=== PATIENT | female | born 1985 | race Caucasian/White ===

== ENCOUNTER 2022-04-03 08:27 | Day surgery (SDC) | payer OTHER ==
[2022-03-30 11:41] LABS: Hemoglobin 13.4 g/dL (12.0-15.5); Mean Corpuscular HGB CONC 34.5 g/dL (32.0-36.0); Mean Platelet Volume 8.9 fl (7.4-10.4); Platelet Count 458 10x3/uL (150-450); RBC Distribution Width 13.4 % (11.5-14.5); Red Blood Cell (RBC) Count 4.46 10x6/uL (3.90-5.03); White Blood Cell (WBC) Count 9.9 10x3/uL (3.5-10.5)
[2022-03-30 11:54] LABS: BHCG - Serum Negative (NEGATIVE); Pregs Control Background? CLEAR/WHITE (CLR/WHITE); Pregs Control Bar Appear? YES (CONTROL BAR)
[2022-04-02 09:16] VITALS: BMI 29.0
[2022-04-03] MEDS ORDERED: CeleCOXIB 100 MG CAP ONE (08:42)
[2022-04-03] MEDS ORDERED: Gabapentin 300 MG CAP ONE (08:42)
[2022-04-03] MEDS ORDERED: Famotidine/PF 20 mg/2ml Vial ONE (08:43)
[2022-04-03] MEDS ORDERED: PROPOFOL 20 ML ONE (09:17)
[2022-04-03] MEDS ORDERED: Fentanyl 100 MCG/2 ML VIAL ONE (10:21)
[2022-04-03] MEDS ORDERED: Promethazine HCl 25 MG/ML VIAL ONE ×2 (10:23→14:12)
[2022-04-03] MEDS ORDERED: HYDROmorphone 0.5 MG/0.5 ML SYRINGE ONE (10:23)
[2022-04-03] MEDS ORDERED: EPINEPHrine 1 MG/ML AMP ONE (10:24)
[2022-04-03] MEDS ORDERED: Bupivacaine PF 0.5% 30 ML VIAL ONE (10:24)
[2022-04-03] MEDS ORDERED: CEFAZOLIN 2 GM VIAL ONE (10:45)
[2022-04-03] MEDS ORDERED: ePHEDrine Sulfate 50 MG/10 ML VIAL ONE (11:47)
[2022-04-03] MEDS ORDERED: Methylene Blue 50 MG/10 ML AMPUL ONE (12:02)
[2022-04-03] MEDS ORDERED: Dexamethasone 4 mg/ml Vial ONE (12:15)
[2022-04-03] MEDS ORDERED: Ondansetron PF 4 MG/2 ML Vial ONE (12:15)
[2022-04-03] MEDS ORDERED: PHENYLEPHRINE-NS 100 MCG/ML 10 ML SYRINGE ONE (12:27)
[2022-04-03] MEDS ORDERED: Ketorolac Tromethamine 30 MG/ML VIAL ONE (12:54)
[2022-04-03] MEDS ORDERED: Glycopyrrolate 0.2 MG/ML 5 ML SYRINGE ONE (12:56)
== END 2022-04-03 17:30 | disposition home or self-care (01) ==
LOC: CSHSDC 08:27
PROVIDERS: ATTEND Student in an Organized Health Care Education/Training Program
PROC: 0UT74ZZ Resection of Bilateral Fallopian Tubes, Percutaneous Endoscopic Approach (ICD-10-PCS; principal; 2022-04-03)
PROC: 0UT94ZZ Resection of Uterus, Percutaneous Endoscopic Approach (ICD-10-PCS; principal; 2022-04-03)
DX: D25.9 Leiomyoma of uterus, unspecified (principal); N87.9 Dysplasia of cervix uteri, unspecified; N80.03 Adenomyosis of the uterus; G89.18 Other acute postprocedural pain; J45.909 Unspecified asthma, uncomplicated; Z88.1 Allergy status to other antibiotic agents; Z88.8 Allergy status to other drugs, medicaments and biological substances
CPT/HCPCS: 36415; 84703; 85027; 86850; 86900; 86901; 88307; C1776; J0171; J1100; J1170; J1885; J2405; J2550; J2704; J3010; Q9968; S0020; S0028